=== PATIENT | female | born 1980 | race Hispanic/Latino ===

== ENCOUNTER 2024-07-15 02:04 | Emergency (ER) | payer OTHER ==
[~2024-07-15] VITALS: Ht 160 cm; Wt 85.7 kg
[2024-07-15 02:04] VITALS: TEMP 98.6
[2024-07-15] MEDS ORDERED: HYDROXYZINE HCL 25 MG TAB ONE (02:21)
[2024-07-15] MEDS: SODIUM CHLORIDE 0.9% 1000ML 1,000 ML IV ONE (02:26)
[2024-07-15] MEDS: HYDROXYZINE HCL 25 MG TAB PO ONE (02:27)
[2024-07-15 02:29] LABS: BASOPHILS # (AUTO) 0.1 (0.0-0.1); BASOPHILS % 0.5 % (0.0-1.0); EOSINOPHILS # (AUTO) 0.1 (0.0-0.4); EOSINOPHILS % 0.6 % (0.0-6.0); HEMATOCRIT 33.4 % (34.2-44.1); HEMOGLOBIN 9.9 g/dL (12.0-16.0); LYMPHOCYTES # (AUTO) 5.4 (1.0-3.2); LYMPHOCYTES % 43.6 % (18.0-39.1); MEAN CORPUSCULAR HEMOGLOBIN 21.4 pg (28-32); MEAN CORPUSCULAR HGB CONC 29.6 g/dL (31-35); MEAN CORPUSCULAR VOLUME 72.3 fL (81-99); MONOCYTES % 7.7 % (4.4-11.3); NEUTROPHILS # (AUTO) 5.8 (2.1-6.9); NEUTROPHILS % 47.2 % (38.7-80.0); PLATELET COUNT 343 x10e3/uL (140-360); RED BLOOD COUNT 4.62 x10e6/uL (3.6-5.1); RED CELL DISTRIBUTION WIDTH 18.3 % (11.7-14.4); WHITE BLOOD COUNT 12.32 x10e3/uL (4.8-10.8)
[2024-07-15] MEDS: METOPROLOL TARTRATE INJ 1 MG/ML VIAL IV ONE (02:49)
[2024-07-15 03:08] LABS: ALBUMIN 3.5 g/dL (3.5-5.0); ALBUMIN/GLOBULIN RATIO 0.8 (0.8-2.0); ANION GAP 14.1 mmol/L (8-16); BILIRUBIN,TOTAL 0.3 mg/dL (0.2-1.2); CALCIUM 8.7 mg/dL (8.4-10.2); CREATININE, SERUM 0.77 mg/dL (0.57-1.11)
[2024-07-15 03:13] LABS: POTASSIUM 3.1 mmol/L (3.5-5.1)
[2024-07-15 03:15] LABS: TROPONIN I < 0.001 ng/mL (0-0.300)
[2024-07-15 03:35] VITALS: PULSE 85; RESP 18
[2024-07-15 04:20] VITALS: BP 111/67; PULSE 76; RESP 18; TEMP 97.5; O2SAT 100
[2024-07-15 04:36] LABS: LYMPHOCYTES % (MANUAL) 43 % (19-48); MONOCYTES % (MANUAL) 9 % (3.4-9.0); NEUTROPHILS % (MANUAL) 48 % (40-74)
[2024-07-15 04:38] LABS: ANISOCYTOSIS MODERATE; ELLIPTOCYTE, RBC SLIGHT; HYPOCHROMASIA MODE; MICROCYTOSIS MODERATE; OVALOCYTES FEW; POIKILOCYTOSIS MODERATE
[2024-07-15 04:39] LABS: PLATELET ESTIMATE ADEQUATE; PLATELET MORPHOLOGY COMMENT NORMAL; RBC MORPHOLOGY COMMENT ABNORMAL
== END 2024-07-15 04:23 | disposition home or self-care (01) ==
LOC: ER 02:15
DX: R00.2 Palpitations (principal); R07.89 Other chest pain; R00.0 Tachycardia, unspecified; F41.9 Anxiety disorder, unspecified; I10 Essential (primary) hypertension; D64.9 Anemia, unspecified; E78.5 Hyperlipidemia, unspecified; I34.1 Nonrheumatic mitral (valve) prolapse; R94.31 Abnormal electrocardiogram [ECG] [EKG]
CPT/HCPCS: 36415; 71045; 80053; 83880; 84484; 84702; 85025; 85379; 93005; 99284; J3410; J7030

== ENCOUNTER 2024-09-16 18:06 | Observation (INO) | payer OTHER ==
[~2024-09-16] VITALS: Ht 162.6 cm; Wt 87.5 kg
[2024-09-16] MEDS ORDERED: IOPAMIDOL 370 MG/ML 100 ML INFUS..BTL INJ ONE (19:59)
[2024-09-16] MEDS: MAGNESIUM/ALUMINUM/SIMETHICONE 30 ML UDC PO ONE (20:15)
[2024-09-16] MEDS: DIPHENHYDRAMINE HCL ELIX 25 MG/10 ML UDC PO ONE (20:16)
[2024-09-16] MEDS: ASPIRIN 325 MG TAB PO ONE (20:16)
[2024-09-16] MEDS: LIDOCAINE VISC 2% SOLN 15 ML UDC PO ONE (20:16)
[2024-09-16] MEDS: LORAZEPAM INJ 2 MG/ML VIAL IV ONE (20:17)
[2024-09-16] MEDS: SODIUM CHLORIDE 0.9% 1000ML 1,000 ML IV ONE (20:17)
[2024-09-16] MEDS: ONDANSETRON HCL INJ 2MG/ML 2ML 2 MG/ML VIAL IV STA (20:34)
[2024-09-16] MEDS ORDERED: ENOXAPARIN INJ 80 MG/0.8 ML SYR SC STA (21:39)
[2024-09-16] MEDS ORDERED: Morphine 2mg Syringe 2 MG/ML SYR IV PRN (21:45)
[2024-09-16] MEDS ORDERED: ONDANSETRON HCL INJ 2MG/ML 2ML 2 MG/ML VIAL IV PRN (21:45)
[2024-09-16] MEDS ORDERED: ALPRAZOLAM 0.25 MG TAB PO PRN (22:00)
[2024-09-16] MEDS: ENOXAPARIN SODIUM INJ 100 MG/ML SYR SC STA (22:22)
[2024-09-16 22:58] VITALS: RESP 16; TEMP 97.8
[2024-09-16 23:10] VITALS: PULSE 99; RESP 20; O2SAT 96
[2024-09-16 23:48] VITALS: PULSE 90
[2024-09-17] VITALS (17 sets, daily range): BP systolic 80–133; BP diastolic 50–87; PULSE 72–110; RESP 12–27; TEMP 98–98.4; O2SAT 94–100
[2024-09-17] MEDS: SODIUM CHLORIDE 0.9% 1000ML 1,000 ML IV SCH (00:55)
[2024-09-17] MEDS: MUPIROCIN 2% OINT 22 GM TUBE TOP SCH (00:55)
[2024-09-17] MEDS ORDERED: ACETAMINOPHEN 325 MG TAB PO PRN (05:00)
[2024-09-17] MEDS ORDERED: METOPROLOL TARTRATE INJ 1 MG/ML VIAL IV PRN (05:00)
[2024-09-17] MEDS ORDERED: ALBUTEROL/IPRATROPIUM 3 ML NEB NEB PRN (05:00)
[2024-09-17] MEDS ORDERED: DOCUSATE SODIUM 100 MG CAP PO PRN (05:00)
[2024-09-17] MEDS ORDERED: MELATONIN 3 MG TAB PO PRN (05:00)
[2024-09-17 06:39] LABS: BASOPHILS % 0.3 % (0.0-1.0); EOSINOPHILS % 0.6 % (0.0-6.0); HEMATOCRIT 25.6 % (34.2-44.1); HEMOGLOBIN 7.5 g/dL (12.0-16.0); LYMPHOCYTES # (AUTO) 2.9 (1.0-3.2); LYMPHOCYTES % 46.9 % (18.0-39.1); MEAN CORPUSCULAR HEMOGLOBIN 20.5 pg (28-32); MEAN CORPUSCULAR HGB CONC 29.3 g/dL (31-35); MEAN CORPUSCULAR VOLUME 70.1 fL (81-99); MONOCYTES # (AUTO) 0.5 (0.2-0.8); MONOCYTES % 7.2 % (4.4-11.3); NEUTROPHILS # (AUTO) 2.8 (2.1-6.9); NEUTROPHILS % 44.8 % (38.7-80.0); PLATELET COUNT 266 x10e3/uL (140-360); RED BLOOD COUNT 3.65 x10e6/uL (3.6-5.1); RED CELL DISTRIBUTION WIDTH 18.2 % (11.7-14.4); WHITE BLOOD COUNT 6.21 x10e3/uL (4.8-10.8)
[2024-09-17 07:05] LABS: ALBUMIN 2.9 g/dL (3.5-5.0); ALBUMIN/GLOBULIN RATIO 0.8 (0.8-2.0); ANION GAP 10.8 mmol/L (8-16); BILIRUBIN,TOTAL 0.4 mg/dL (0.2-1.2); CREATININE, SERUM 0.67 mg/dL (0.57-1.11); MAGNESIUM 2.1 MG/DL (1.3-2.1); PHOSPHORUS 2.3 MG/DL (2.3-4.7); POTASSIUM 3.8 mmol/L (3.5-5.1); TOTAL PROTEIN 6.7 g/dL (6.5-8.1)
[2024-09-17 07:42] LABS: TROPONIN I 0.006 ng/mL (0-0.300)
[2024-09-17 08:12] LABS: FERRITIN 8.07 ng/mL (4.63-204.00)
[2024-09-17] MEDS: METOPROLOL SUCCINATE 50 MG TAB XL PO SCH (08:32)
[2024-09-17 15:55] LABS: TROPONIN I 0.002 ng/mL (0-0.300)
[2024-09-17] MEDS: ENOXAPARIN SOD INJ 40 MG/0.4 ML SYR SC SCH (16:57)
[2024-09-17] MEDS ORDERED: FERROUS SULFAT325 MG PO (17:35)
[2024-09-17] MEDS ORDERED: TOPROL XL50 MG PO (17:35)
[2024-09-17] MEDS ORDERED: ECOTRIN81 MG PO (17:36)
== END 2024-09-17 18:23 | disposition home or self-care (01) ==
LOC: FSED 18:08 → ERHOLD 21:37 → ICU 09-17 00:16
PROVIDERS: ADMIT Internal Medicine; ATTEND Internal Medicine
DX: R00.0 Tachycardia, unspecified (principal); R00.2 Palpitations; D64.9 Anemia, unspecified; E87.0 Hyperosmolality and hypernatremia; I34.1 Nonrheumatic mitral (valve) prolapse; D50.9 Iron deficiency anemia, unspecified; I10 Essential (primary) hypertension; E78.5 Hyperlipidemia, unspecified
CPT/HCPCS: 36415; 71046; 78580; 80053 ×2; 81025; 82550; 82607; 82728; 83540; 83735; 83880; 84100; 84443; 84466; 84484 ×2; 85025 ×2; 85379 ×2; 93005 ×2; 93306; 94799 ×2; 96361; 99252; 99284; A9540; G0378 ×2; J1650; J2060; J2405; J7030 ×2; Q9967

== ENCOUNTER 2024-09-29 01:58 | Emergency (ER) | payer OTHER ==
[~2024-09-29] VITALS: Ht 162.6 cm; Wt 89.4 kg
[~2024-09-29 01:58] MED LIST: ECOTRIN81 MG PO; FERROUS SULFAT325 MG PO; TOPROL XL50 MG PO
[2024-09-29 02:06] VITALS: TEMP 98.5
[2024-09-29] MEDS ORDERED: DILTIAZEM HCL VIAL 5 ML ONE (02:23)
[2024-09-29] MEDS: DILTIAZEM HCL 5 MG/ML 5 ML VIAL IV ONE (02:39)
[2024-09-29] MEDS: LORAZEPAM INJ 2 MG/ML VIAL IV ONE (02:44)
[2024-09-29] MEDS ORDERED: DILTIAZEM HCL 5 MG/ML 5 ML VIAL IV ONE (03:00)
[2024-09-29 06:41] VITALS: PULSE 82; RESP 18
[2024-09-29 07:00] VITALS: BP 112/59; PULSE 82; RESP 18; O2SAT 99
== END 2024-09-29 07:00 | disposition home or self-care (01) ==
LOC: FSED 02:08
DX: R00.2 Palpitations (principal); R07.89 Other chest pain; R00.0 Tachycardia, unspecified; I10 Essential (primary) hypertension; E78.5 Hyperlipidemia, unspecified; D64.9 Anemia, unspecified; Z86.79 Personal history of other diseases of the circulatory system
CPT/HCPCS: 71046; 80048; 84484; 85025; 93005; 96374; 96375; 99283; J2060

== ENCOUNTER 2024-10-01 13:19 | Emergency (ER) | payer OTHER ==
[~2024-10-01] VITALS: Ht 162.6 cm; Wt 86.4 kg
[2024-10-01] MEDS ORDERED: METOPROLOL SUCC50 MG PO (13:38)
[2024-10-01 14:14] VITALS: PULSE 98; RESP 16; TEMP 98.3; O2SAT 98
[2024-10-01] MEDS ORDERED: PROCTOSOL-HC28.35 GM PR (14:27)
== END 2024-10-01 14:35 | disposition home or self-care (01) ==
LOC: FSED 13:32
DX: R19.7 Diarrhea, unspecified (principal); K64.9 Unspecified hemorrhoids; R00.0 Tachycardia, unspecified; I10 Essential (primary) hypertension; E78.5 Hyperlipidemia, unspecified; D64.9 Anemia, unspecified; K21.9 Gastro-esophageal reflux disease without esophagitis; Z86.79 Personal history of other diseases of the circulatory system
CPT/HCPCS: 82270; 99283

== ENCOUNTER 2024-10-01 23:08 | Emergency (ER) | payer OTHER ==
[~2024-10-01] VITALS: Ht 162.6 cm; Wt 85.7 kg
[~2024-10-01 23:08] MED LIST changes: +METOPROLOL SUCC50 MG PO; +PROCTOSOL-HC28.35 GM PR
[2024-10-02 01:24] VITALS: PULSE 97; RESP 18; TEMP 97.7
[2024-10-02] MEDS: SODIUM CHLORIDE 0.9% 1000ML 1,000 ML IV ONE (01:48)
[2024-10-02 02:59] VITALS: BP 131/78; PULSE 84; RESP 16; O2SAT 98
== END 2024-10-02 03:02 | disposition home or self-care (01) ==
LOC: FSED 10-02 00:02
DX: R00.2 Palpitations (principal); R00.0 Tachycardia, unspecified; I10 Essential (primary) hypertension; E78.5 Hyperlipidemia, unspecified; D64.9 Anemia, unspecified; K21.9 Gastro-esophageal reflux disease without esophagitis; I34.1 Nonrheumatic mitral (valve) prolapse; R94.31 Abnormal electrocardiogram [ECG] [EKG]
CPT/HCPCS: 71046; 80053; 84484; 85025; 93005; 99284; J7030

== ENCOUNTER 2025-03-20 22:58 | Emergency (ER) | payer OTHER ==
[~2025-03-20] VITALS: Ht 162.6 cm; Wt 89.4 kg
[2025-03-20 23:20] VITALS: PULSE 90; RESP 18; TEMP 98.7
[2025-03-20] MEDS ORDERED: PYRIDIUM100 MG PO (23:49)
[2025-03-20] MEDS ORDERED: CEFDINIR300 MG PO (23:49)
[2025-03-20] MEDS ORDERED: IBUPROFEN600 MG PO (23:49)
[2025-03-21] MEDS: CEFTRIAXONE 1 GM VIAL IM ONE (00:15)
[2025-03-21] MEDS: IBUPROFEN 200 MG TAB PO ONE (00:16)
[2025-03-21] MEDS: ACETAMINOPHEN 325 MG TAB PO ONE (00:16)
[2025-03-21 01:12] VITALS: BP 138/68; PULSE 78; RESP 14; TEMP 97.9; O2SAT 99
== END 2025-03-21 00:35 | disposition home or self-care (01) ==
LOC: FSED 23:14
DX: R30.0 Dysuria (principal); N39.0 Urinary tract infection, site not specified; I10 Essential (primary) hypertension; E78.5 Hyperlipidemia, unspecified; D64.9 Anemia, unspecified; K21.9 Gastro-esophageal reflux disease without esophagitis; Z86.79 Personal history of other diseases of the circulatory system
CPT/HCPCS: 81003; 81025; 96372; 99283; J0696